=== PATIENT | male | born 1950 | race African-American/Black ===

== ENCOUNTER → 2016-05-28 | Outpatient (CLI) | payer OTHER ==
[~2016-05-28] MED LIST: GADOBUTROL 10 ML VIAL IVP ONE
[2016-05-28 15:43] LABS: CREATININE 1.4 mg/dL (0.7-1.3)
== END ==
LOC: FIMAGING 14:46
PROVIDERS: ATTEND Physician Assistant
DX: N40.1 Benign prostatic hyperplasia with lower urinary tract symptoms (principal)
CPT/HCPCS: 72197; 76377; A9585